=== PATIENT | male | born 1955 | race Caucasian/White ===

== ENCOUNTER → 2016-08-14 | Outpatient (CLI) | payer BC ==
[~2016-08-14] MED LIST: ADULT LOW DOSE81 MG PO; ANDRODERM1 EAC1 TD; CALCIUM 600 +1 EAC7 PO; CARDURA 2MG TAB2 MG PO; COLACE 100MG C100 MG PO; FISH OIL300 MG PO; GLEEVEC PO; HYDROXYZINE HCL10 MG PO; LIPITOR TAB 1010 MG PO; MAGNESIUM400 MG PO; PROTONIX40 MG PO; RESTORIL7.5 MG PO; VITAMIN D5000 UNIT PO; VITAMIN E100 UNI1 PO; WELLBUTRIN XL300 M1 PO; ZOFRAN4 MG PO; ZOLOFT25 MG PO
== END ==
LOC: KOH-I 14:28
DX: M54.9 Dorsalgia, unspecified (principal); M47.814 Spondylosis without myelopathy or radiculopathy, thoracic region
CPT/HCPCS: 72070

== ENCOUNTER → 2020-07-11 | Outpatient (CLI) | payer MEDICARE ==
[~2020-07-11] MED LIST changes: +AMLODIPINE BES2.5 MG PO; +ASPIR 8181 MG PO; +ATORVASTATIN CA10 MG PO; +BUPROPION XL150 MG PO; +DOXAZOSIN MESYLA2 MG PO; +FISH OIL PO; +HYDROXYZINE PO; +MELATONIN5 M2 PO; +ONDANSETRON HCL4 MG PO; +PHENERGAN 25 MG25 M1 PO; +PROBIOTIC1 EAC2 PO; +SUPER B COMPLEX PO; +VITAMIN D PO
[2020-07-11 13:10] LABS: HEMOGLOBIN 12.4 gm/dl (14.0-17.5); RED BLOOD COUNT 3.61 M/UL (4.20-5.50); WHITE BLOOD COUNT 4.6 K/UL (4.5-11.0)
== END ==
LOC: LAB 12:29
PROVIDERS: Clinical Nurse Specialist
DX: C92.90 Myeloid leukemia, unspecified, not having achieved remission (principal)
CPT/HCPCS: 36415; 80053; 81206; 81207; 85025

== ENCOUNTER → 2020-07-19 | Outpatient (CLI) | payer MEDICARE | LOC: RAD 11:54 | DX: R10.9 Unspecified abdominal pain (principal); R14.3 Flatulence | CPT/HCPCS: 74018 ==

== ENCOUNTER → 2020-09-17 | Outpatient (CLI) | payer MEDICARE, BC ==
[2020-09-17 14:41] LABS: RED BLOOD COUNT 3.79 M/UL (4.20-5.50)
== END ==
LOC: LAB 12:51
DX: C92.10 Chronic myeloid leukemia, BCR/ABL-positive, not having achieved remission (principal); I12.9 Hypertensive chronic kidney disease with stage 1 through stage 4 chronic kidney disease, or unspecified chronic kidney disease; N18.9 Chronic kidney disease, unspecified; R74.8 Abnormal levels of other serum enzymes; Z79.899 Other long term (current) drug therapy
CPT/HCPCS: 36415; 80053; 81206; 81207; 85025

== ENCOUNTER → 2020-11-26 | Outpatient (CLI) | payer MEDICARE, OTHER ==
[2020-11-26 10:46] LABS: HEMOGLOBIN 12.7 gm/dl (14.0-17.5); RED BLOOD COUNT 3.95 M/UL (4.20-5.50); WHITE BLOOD COUNT 6.3 K/UL (4.5-11.0)
[2020-12-02 14:10] LABS: B2A2 TRANSCRIPT 0.0788 % (.)
== END ==
LOC: LAB 10:16
PROVIDERS: Internal Medicine Hematology & Oncology
DX: C92.10 Chronic myeloid leukemia, BCR/ABL-positive, not having achieved remission (principal)
CPT/HCPCS: 80053; 81206; 81207; 85025

== ENCOUNTER → 2020-12-21 | Outpatient (CLI) | payer MEDICARE, OTHER ==
[2020-12-21 13:44] LABS: HEMOGLOBIN 12.3 gm/dl (14.0-17.5); RED BLOOD COUNT 3.98 M/UL (4.20-5.50); WHITE BLOOD COUNT 7.4 K/UL (4.5-11.0)
== END ==
LOC: LAB 13:25
PROVIDERS: Internal Medicine Hematology & Oncology
DX: C92.10 Chronic myeloid leukemia, BCR/ABL-positive, not having achieved remission (principal)
CPT/HCPCS: 36415; 80053; 81206; 81207; 85025

== ENCOUNTER → 2021-01-23 | Outpatient (CLI) | payer MEDICARE, OTHER | LOC: RAD 10:24 | DX: M25.561 Pain in right knee (principal); M25.511 Pain in right shoulder | CPT/HCPCS: 73030; 73564 ==

== ENCOUNTER → 2021-03-06 | Outpatient (CLI) | payer MEDICARE, OTHER | LOC: EXRD 13:15 | DX: N18.32 Chronic kidney disease, stage 3b (principal) | CPT/HCPCS: 76775 ==

== ENCOUNTER → 2021-03-06 | Outpatient (CLI) | payer MEDICARE, OTHER ==
[2021-03-06 13:32] LABS: HEMOGLOBIN 13.7 gm/dl (14.0-17.5); RED BLOOD COUNT 4.37 M/UL (4.20-5.50); WHITE BLOOD COUNT 6.6 K/UL (4.5-11.0)
== END ==
LOC: LAB 12:50
PROVIDERS: Internal Medicine Hematology & Oncology
DX: C92.10 Chronic myeloid leukemia, BCR/ABL-positive, not having achieved remission (principal)
CPT/HCPCS: 36415; 80053; 81001; 81206; 81207; 82570; 84100; 84156; 85025

== ENCOUNTER → 2021-05-13 | Outpatient (CLI) | payer MEDICARE, OTHER ==
[2021-05-13 13:45] LABS: HEMOGLOBIN 12.7 gm/dl (14.0-17.5); RED BLOOD COUNT 3.86 M/UL (4.20-5.50); WHITE BLOOD COUNT 5.1 K/UL (4.5-11.0)
[2021-05-14 09:15] LABS: BILIRUBIN, TOTAL 0.8 mg/dL (0.0-1.2); CALCIUM, SERUM 9.2 mg/dL (8.6-10.2); CREATININE, SERUM 1.58 mg/dL (0.76-1.27); GLOBULIN, TOTAL 2.2 g/dL (1.5-4.5); POTASSIUM, SERUM 4.5 mmol/L (3.5-5.2); PROTEIN, TOTAL, SERUM 6.6 g/dL (6.0-8.5)
== END ==
LOC: LAB 13:20
PROVIDERS: Internal Medicine Hematology & Oncology
DX: C92.10 Chronic myeloid leukemia, BCR/ABL-positive, not having achieved remission (principal)
CPT/HCPCS: 36415; 80053; 81206; 81207; 85025

== ENCOUNTER 2021-08-19 11:56 | Emergency (ER) | payer MEDICARE, OTHER ==
[2021-08-19 12:59] LABS: HEMOGLOBIN 13.3 gm/dl (14.0-17.5); RED BLOOD COUNT 3.85 M/UL (4.20-5.50); WHITE BLOOD COUNT 6.1 K/UL (4.5-11.0)
== END 2021-08-19 15:25 | disposition home or self-care (01) ==
LOC: ER1 11:56
PROVIDERS: Physician Assistant
DX: K52.9 Noninfective gastroenteritis and colitis, unspecified (principal); N18.9 Chronic kidney disease, unspecified
CPT/HCPCS: 80053; 81001; 83690; 85025; 99284

== ENCOUNTER → 2021-10-07 | Outpatient (CLI) | payer MEDICARE, OTHER | LOC: SLEEP 14:15 | DX: G47.33 Obstructive sleep apnea (adult) (pediatric) (principal) | CPT/HCPCS: 95811 ==

== ENCOUNTER → 2021-10-08 | Outpatient (CLI) | payer MEDICARE, OTHER ==
[2021-10-08 14:46] LABS: HEMOGLOBIN 12.9 gm/dl (14.0-17.5); RED BLOOD COUNT 3.73 M/UL (4.20-5.50)
== END ==
LOC: LAB 14:12
PROVIDERS: Internal Medicine Hematology & Oncology
DX: C92.10 Chronic myeloid leukemia, BCR/ABL-positive, not having achieved remission (principal)
CPT/HCPCS: 36415; 80053; 81206; 81207; 85025